=== PATIENT | male | born 1945 | race Caucasian/White ===

== ENCOUNTER → 2023-03-07 | Outpatient (CLI) | payer MEDICARE, BC ==
[2023-03-07 21:38] LABS: Blood Urea Nitrogen 18.9 mg/dL (9.0-27.0); Calcium 9.6 mg/dL (8.7-10.3); Carbon Dioxide 25.5 mmol/L (21.6-31.8); Chloride 103 mmol/L (96-109); Glucose 131 mg/dL (70-110); Potassium 5.1 mmol/L (3.5-5.5); Sodium 140 mmol/L (135-145)
[2023-03-07 22:21] LABS: Basophils # (A) 0.05 X 10*3/uL (0.00-0.10); Basophils % (A) 0.7 %; Eosinophils # (A) 0.25 X 10*3/uL (0.04-0.35); Eosinophils % (A) 3.4 %; HCT 44.2 % (39.6-50.0); HGB 14.7 d/dL (13.0-17.0); Lymphocytes # (A) 1.44 X 10*3/uL (0.90-5.00); Lymphocytes % (A) 19.5 %; MCH 29.7 pg (27.0-32.0); MCHC 33.3 d/dL (32.0-37.0); MCV 89.3 FL (80.0-97.0); Mean Platelet Volume 9.7 FL (9.5-12.2); Monocytes # (A) 0.58 X 10*3/uL (0.20-1.00); Monocytes % (A) 7.8 %; NRBC Per 100 WBC 0 X 10*3/uL (0.00-0.01); Neutrophils # (A) 5.06 X 10*3/uL (1.80-7.70); Neutrophils % (A) 68.3 %; Platelet Count 267 X 10*3/uL (140-440); RBC 4.95 X 10*6/uL (4.40-5.60); RDW 12.5 % (11.5-14.5)
== END | disposition home or self-care (01) ==
LOC: LABPAT 13:16
PROVIDERS: ATTEND Urology
DX: Z01.812 Encounter for preprocedural laboratory examination (principal); N40.1 Benign prostatic hyperplasia with lower urinary tract symptoms; N13.8 Other obstructive and reflux uropathy
CPT/HCPCS: 80048; 85025

== ENCOUNTER 2023-03-13 08:20 | Day surgery (SDC) | payer MEDICARE, BC ==
--- NOTE | 2023-03-12 18:35 | P.GSHP ---
History of Present Illness H&P Date: 03/12/23 Chief Complaint: Weak urinary stream The patient is a 77-year-old white male with a long history of obstructive voiding symptoms. He is taken tamsulosin over 20 years. Cystoscopy shows evidence of bilobar BPH. Bladder emptying is complete. He was offered alternative treatment options and elects to undergo Urolift implants. His urologic history is significant also for a history of bladder cancer and kidney stones. - Cardiovascular Cardiovascular: Reports high blood pressure - Genitourinary (Male) Genitourinary: Reports incontinence, Reports nocturia Past Medical History Past Medical History: Cancer, GERD/Reflux, Hypertension, Osteoarthritis (OA), Prostate Disorder, Sleep Apnea/CPAP/BIPAP, Thyroid Disorder Additional Past Medical History / Comment(s): heart murmur, seasonal allergies, bladder cancer, kidney stones. wears cpap. cataracts removed History of Any Multi-Drug Resistant Organisms: None Reported Past Surgical History: Back Surgery, Cholecystectomy, Joint Replacement Additional Past Surgical History / Comment(s): total rt knee, cystscopy, colonoscopy, neck surgery - disc removed. carpal tunnel surgery. Past Anesthesia/Blood Transfusion Reactions: No Reported Reaction Additional Past Anesthesia/Blood Transfusion Reaction / Comment(s): no blood transfusions Smoking Status: Former smoker - Past Family History Son(s) Family Medical History: Cancer Father Family Medical History: Cancer Mother Family Medical History: Cancer Brother(s) Family Medical History: Cancer Sister(s) Additional Family Medical History / Comment(s): enlarged heart Medications and Allergies Home Medications Medication Instructions Recorded Confirmed Type Aspirin 81 mg PO DAILY 03/06/23 03/06/23 History Cholecalciferol [Vitamin D3 (25 25 mcg PO DAILY 03/06/23 03/06/23 History Mcg = 1000 Iu)] Glucosamine Sulfate 1,500 mg PO DAILY 03/06/23 03/06/23 History Levothyroxine Sodium 100 mcg PO DAILY 03/06/23 03/06/23 History Lutein 20 mg PO DAILY 03/06/23 03/06/23 History Pantoprazole Sodium 40 mg PO DAILY 03/06/23 03/06/23 History Potassium Citrate [Potassium 20 meq PO AC-TID 03/06/23 03/06/23 History Citrate ER] Tamsulosin HCl [Flomax] 0.4 mg PO BID 03/06/23 03/06/23 History Unk Multi Vitamin 1 tab PO DAILY 03/06/23 03/06/23 History Vitamin E (Dl,Tocopheryl Acet) 400 unit PO DAILY 03/06/23 03/06/23 History [Vitamin E (400 Iu = 180 mg)] amLODIPine [Norvasc] 5 mg PO DAILY 03/06/23 03/06/23 History lisinopriL [Zestril] 20 mg PO HS 03/06/23 03/06/23 History Allergies Allergy/AdvReac Type Severity Reaction Status Date / Time No Known Allergies Allergy Verified 03/06/23 14:07 Surgical - Exam - General well developed, well nourished, no distress - Respiratory normal respiratory effort - Abdomen Abdomen: soft, non tender, no guarding, no rigid, no rebound - Genitourinary normal penis with no external lesions, testicles non-tender - Rectum Rectum: normal sphincter tone, no masses, other (Prostate mildly enlarged but smooth) - Psychiatric oriented to time, oriented to person, oriented to place, speech is normal, memory intact Assessment and Plan (1) Benign prostatic hyperplasia with lower urinary tract symptoms Status: Acute Code(s): N40.1 - BENIGN PROSTATIC HYPERPLASIA WITH LOWER URINARY TRACT SYMP SNOMED Code(s): 745341472 Plan: Cystoscopy with Urolift implants. The procedure has been reviewed in detail w ith the patient. He has been made aware of potential risks, which include anesthesia, bleeding, infection, postoperative irritative voiding symptoms, and persistent lower urinary tract symptoms with incomplete bladder emptying.
[~2023-03-13 08:20] MED LIST: DEXAMETHASONE SOD PHOSPHATE 4 MG/ML 1 ML VIAL IV ONE; HYDROmorphone 0.5 MG/0.5 ML SYRINGE IVP PRN; LACTATED RINGERS 1,000 ML IV SCH; LIDOCAINE 1% (10MG/ML) FOR IV START INTRADERMA PRN; ONDANSETRON 4 MG/2 ML VIAL IVP ONE
[2023-03-13 09:18] VITALS: BP 145/70; PULSE 51; RESP 20; TEMP 97.8
== END 2023-03-13 11:27 | disposition home or self-care (01) ==
LOC: OR 08:20
PROVIDERS: ATTEND Urology
DX: N40.1 Benign prostatic hyperplasia with lower urinary tract symptoms (principal); I10 Essential (primary) hypertension; E78.5 Hyperlipidemia, unspecified; G47.33 Obstructive sleep apnea (adult) (pediatric); K21.9 Gastro-esophageal reflux disease without esophagitis; M19.90 Unspecified osteoarthritis, unspecified site; E07.9 Disorder of thyroid, unspecified; Z79.82 Long term (current) use of aspirin; Z79.890 Hormone replacement therapy; Z87.442 Personal history of urinary calculi; Z87.891 Personal history of nicotine dependence; Z90.49 Acquired absence of other specified parts of digestive tract; Z79.899 Other long term (current) drug therapy; Z85.51 Personal history of malignant neoplasm of bladder; Z53.8 Procedure and treatment not carried out for other reasons
CPT/HCPCS: 84132; J1100; J2405

== ENCOUNTER 2023-05-08 06:04 | Day surgery (SDC) | payer MEDICARE, BC ==
--- NOTE | 2023-05-07 19:53 | P.GSHP ---
History of Present Illness H&P Date: 05/07/23 Chief Complaint: Weak urinary stream The patient is a 77-year-old white male with a history kidney stones. He was diagnosed with bladder cancer approximately 20 years ago, and had one recurrence treated 15 years ago. He has taken tamsulosin for over 20 years, and states yuki t it initially helped. However, he now reports a weak urinary stream, intermittency, nocturia, and urgency with rare urinary urge incontinence. Bladder emptying is complete. Cystoscopy showed bilobar BPH. - Cardiovascular Cardiovascular: Reports high blood pressure - Genitourinary (Male) Genitourinary: Denies dysuria, Denies hematuria Past Medical History Past Medical History: Cancer, GERD/Reflux, Hypertension, Osteoarthritis (OA), Prostate Disorder, Sleep Apnea/CPAP/BIPAP, Thyroid Disorder Additional Past Medical History / Comment(s): heart murmur, seasonal allergies, bladder cancer, kidney stones. wears cpap. cataracts removed History of Any Multi-Drug Resistant Organisms: None Reported Past Surgical History: Back Surgery, Cholecystectomy, Joint Replacement Additional Past Surgical History / Comment(s): total rt knee, cystscopy, colonoscopy, neck surgery - disc removed. carpal tunnel surgery. Past Anesthesia/Blood Transfusion Reactions: No Reported Reaction Additional Past Anesthesia/Blood Transfusion Reaction / Comment(s): no blood transfusions Smoking Status: Former smoker - Past Family History Son(s) Family Medical History: Cancer Father Family Medical History: Cancer Mother Family Medical History: Cancer Brother(s) Family Medical History: Cancer Sister(s) Additional Family Medical History / Comment(s): enlarged heart Medications and Allergies Home Medications Medication Instructions Recorded Confirmed Type Aspirin 81 mg PO DAILY 03/06/23 05/02/23 History Cholecalciferol [Vitamin D3 (25 25 mcg PO DAILY 03/06/23 05/02/23 History Mcg = 1000 Iu)] Glucosamine Sulfate 1,500 mg PO DAILY 03/06/23 05/02/23 History Levothyroxine Sodium 100 mcg PO DAILY 03/06/23 05/02/23 History Lutein 20 mg PO DAILY 03/06/23 05/02/23 History Pantoprazole Sodium 40 mg PO DAILY 03/06/23 05/02/23 History Potassium Citrate [Potassium 20 meq PO AC-TID 03/06/23 05/02/23 History Citrate ER] Tamsulosin HCl [Flomax] 0.4 mg PO BID 03/06/23 05/02/23 History Unk Multi Vitamin 1 tab PO DAILY 03/06/23 05/02/23 History Vitamin E (Dl,Tocopheryl Acet) 400 unit PO DAILY 03/06/23 05/02/23 History [Vitamin E (400 Iu = 180 mg)] amLODIPine [Norvasc] 5 mg PO DAILY 03/06/23 05/02/23 History lisinopriL [Zestril] 20 mg PO HS 03/06/23 05/02/23 History Allergies Allergy/AdvReac Type Severity Reaction Status Date / Time No Known Allergies Allergy Verified 05/02/23 09:40 Surgical - Exam - General well developed, well nourished, no distress - Respiratory normal respiratory effort - Abdomen Abdomen: soft, non tender, no guarding, no rigid, no rebound - Genitourinary normal penis with no external lesions, testicles non-tender - Rectum Rectum: normal sphincter tone, no masses, other (Prostate mildly enlarged and smooth) - Psychiatric oriented to time, oriented to person, oriented to place, speech is normal, memory intact Assessment and Plan (1) Benign prostatic hyperplasia with lower urinary tract symptoms Status: Acute Code(s): N40.1 - BENIGN PROSTATIC HYPERPLASIA WITH LOWER URINARY TRACT SYMP SNOMED Code(s): 527511955 Plan: Cystoscopy with Urolift implants. The procedure has been reviewed in detail with the patient. He has been made aware of potential risks, which include anesthesia, bleeding, infection, postoperative irritative voiding symptoms, and persistent lower urinary tract symptoms with incomplete bladder emptying.
[2023-05-08 06:52] VITALS: RESP 16
[2023-05-08] MEDS ORDERED: ONDANSETRON 4 MG/2 ML VIAL IVP ONE (06:52)
[2023-05-08] MEDS ORDERED: LACTATED RINGERS 1,000 ML IV SCH (06:52)
[2023-05-08] MEDS ORDERED: HYDROmorphone 0.5 MG/0.5 ML SYRINGE IVP PRN (07:00)
[2023-05-08] MEDS ORDERED: MIDAZOLAM 2 MG/2 ML VIAL IVP ONE (07:07)
[2023-05-08] MEDS ORDERED: PROPOFOL 10 MG/ML 20 ML VIAL IV ONE (07:30)
[2023-05-08] MEDS ORDERED: fentaNYL (PF) 50 MCG/ML 2 ML AMP ONE (07:30)
[2023-05-08] MEDS ORDERED: LIDOCAINE 4% LTA KIT (4 ML) TOPICAL ONE (07:30)
[2023-05-08] MEDS ORDERED: LIDOCAINE 1% INJ 10MG/ML (20 ML MDV) ONE (07:30)
[2023-05-08] MEDS ORDERED: ePHEDrine 50 MG/ML 1 ML VIAL ONE (07:30)
[2023-05-08] MEDS ORDERED: SUCCINYLCHOLINE CHLORIDE 200 MG/10 ML VIAL IV ONE (07:30)
[2023-05-08 08:51] VITALS: TEMP 97
[2023-05-08 09:38] VITALS: BP 144/79; PULSE 60
--- NOTE | 2023-05-08 10:53 | P.OP ---
Date of Procedure: 05/08/23 Preoperative Diagnosis: BPH with obstruction Postoperative Diagnosis: Same Procedure(s) Performed: Cystoscopy with Urolift implants, fulguration of bleeders Anesthesia: DEBBI Surgeon: Ventura Bryant Estimated Blood Loss (ml): 10 IV fluids (ml): 700 Pathology: none sent Condition: stable Disposition: PACU Indications for Procedure: The patient is a 77-year-old white male with a history kidney stones. He was diagnosed with bladder cancer approximately 20 years ago, and had one recurrence treated 15 years ago. He has taken tamsulosin for over 20 years, and states that it initially helped. However, he now reports a weak urinary stream, intermittency, nocturia, and urgency with rare urinary urge incontinence. Bladder emptying is complete. Cystoscopy showed bilobar BPH and he has elected to undergo Urolift implants. Operative Findings: Bilobar BPH, R>L. 6 implants result in an open prostatic fossa. Description of Procedure: The patient was taken in the operating room and placed in the dorsolithotomy position. The external genitalia was prepped and draped sterilely. The 30 lens was used to introduce the Stortz cystoscopic sheath through the urethra and into the bladder under direct vision. The anterior urethra appeared normal. The prostatic urethra showed evidence of complete obstruction with a bilobar configuration, with the majority of the obstruction being right-sided. Both ureteral orifice his were of normal anatomic location and configuration. No tumors or foreign bodies were seen. The bladder was mildly trabeculated. Urolift implants were placed at the 10:00 and 2:00 positions approximately 1.5 cm distal to the vesical neck. 2 additional Urolift implants were placed at the 9:00 and 3:00 positions at the level of the verumontanum. 2 additional implants were placed on the right side to achieve an open prostatic fossa. The Bugbee electrode was used to fulgurate bleeders. Hemostasis was adequate. The cystoscope removed. A Rivera catheter was placed. The return was pink tinged. The patient tolerated the procedure well was taken to the recovery room in stable condition.
== END 2023-05-08 09:54 | disposition home or self-care (01) ==
LOC: OR 06:04
PROVIDERS: ATTEND Urology
DX: N40.1 Benign prostatic hyperplasia with lower urinary tract symptoms (principal); N13.8 Other obstructive and reflux uropathy; N39.41 Urge incontinence; K21.9 Gastro-esophageal reflux disease without esophagitis; I10 Essential (primary) hypertension; M19.90 Unspecified osteoarthritis, unspecified site; G47.33 Obstructive sleep apnea (adult) (pediatric); J30.2 Other seasonal allergic rhinitis; E03.9 Hypothyroidism, unspecified; Z90.49 Acquired absence of other specified parts of digestive tract; Z98.890 Other specified postprocedural states; Z87.442 Personal history of urinary calculi; Z85.51 Personal history of malignant neoplasm of bladder; Z87.891 Personal history of nicotine dependence; Z79.82 Long term (current) use of aspirin; Z79.890 Hormone replacement therapy; Z79.899 Other long term (current) drug therapy
CPT/HCPCS: C9740; L8699; J2250; J0330; J0690; J2405; J2001; J3010; J2704

== ENCOUNTER → 2024-09-30 | Outpatient (CLI) | payer MEDICARE, BC ==
[2024-09-30 12:35] LABS: Partial Thromboplastin Time 22.8 sec (22.0-30.0)
[2024-09-30 15:01] LABS: HCT 44.5 % (39.6-50.0); HGB 14.6 g/dL (13.0-17.0); MCH 28.9 pg (27.0-32.0); MCHC 32.8 g/dL (32.0-37.0); MCV 88.1 FL (80.0-97.0); Mean Platelet Volume 9.9 FL (9.5-12.2); NRBC Per 100 WBC 0 X 10*3/uL (0.00-0.01); Platelet Count 241 X 10*3/uL (140-440); RBC 5.05 X 10*6/uL (4.40-5.60); RDW 12.4 % (11.5-14.5); WBC 5.24 X 10*3/uL (4.50-10.00)
[2024-09-30 15:21] LABS: ALT 26 U/L (10-49); AST 24 U/L (14-35); Albumin 4.2 g/dL (3.8-4.9); Albumin/Globulin Ratio 1.83 Ratio (1.60-3.17); Alkaline Phosphatase 90 U/L (41-126); BUN/Creat Ratio 22.56 Ratio (12.00-20.00); Blood Urea Nitrogen 20.3 mg/dL (9.0-27.0); Calcium 9.7 mg/dL (8.7-10.3); Chloride 106 mmol/L (96-109); Globulin 2.3 g/dL (1.6-3.3); Glucose 133 mg/dL (70-110); Potassium 4.5 mmol/L (3.5-5.5); Sodium 140 mmol/L (135-145); Total Bilirubin 0.5 mg/dL (0.3-1.2); Total Protein 6.5 g/dL (6.2-8.2)
[2024-09-30 19:09] LABS: INR 0.9 (<1.2); Prothrombin Time 10.5 sec (10.0-12.5)
== END | disposition home or self-care (01) ==
LOC: LABPAT 10:21
PROVIDERS: ATTEND Orthopaedic Surgery
DX: Z01.812 Encounter for preprocedural laboratory examination (principal); Z22.322 Carrier or suspected carrier of Methicillin resistant Staphylococcus aureus; M17.12 Unilateral primary osteoarthritis, left knee
CPT/HCPCS: 80053; 85027; 85610; 85730; 87070

== ENCOUNTER 2024-10-11 07:07 | Day surgery (SDC) | payer MEDICARE, BC ==
[~2024-10-11 07:07] MED LIST changes: -DEXAMETHASONE SOD PHOSPHATE 4 MG/ML 1 ML VIAL IV ONE; -HYDROmorphone 0.5 MG/0.5 ML SYRINGE IVP PRN; -LACTATED RINGERS 1,000 ML IV SCH; -LIDOCAINE 1% (10MG/ML) FOR IV START INTRADERMA PRN; -ONDANSETRON 4 MG/2 ML VIAL IVP ONE; +TRANEXAMIC 1,000 MG/100ML-NACL 1,000 MG in SALINE 1 100ML.BAG IVPB PRN
[2024-10-11] MEDS: IV FLUID CONTINUATION 1,000 ML IV ONE (07:37)
[2024-10-11] MEDS ORDERED: HYDROmorphone 0.5 MG/0.5 ML SYRINGE IVP PRN ×4 (07:40→08:31)
[2024-10-11] MEDS ORDERED: MIDAZOLAM 2 MG/2 ML VIAL IV PRN (07:40)
[2024-10-11] MEDS: DEXAMETHASONE SOD PHOSPHATE 4 MG/ML 1 ML VIAL IV ONE (07:50)
[2024-10-11] MEDS: MELOXICAM 7.5 MG TAB PO PRN (07:50)
[2024-10-11] MEDS: LACTATED RINGERS 1,000 ML IV SCH (07:50)
[2024-10-11] MEDS: ACETAMINOPHEN TAB 500 MG TAB PO PRN (07:50)
[2024-10-11] MEDS: GABAPENTIN 300 MG CAP PO PRN (07:50)
[2024-10-11] MEDS: ONDANSETRON 4 MG/2 ML VIAL IVP ONE (07:50)
[2024-10-11] MEDS: fentaNYL (PF) 50 MCG/ML 2 ML AMP IVP STA (08:28)
[2024-10-11] MEDS: MIDAZOLAM 2 MG/2 ML VIAL IV STA (08:28)
[2024-10-11] MEDS ORDERED: NA PHOS,M-B/NA PHOS,DI-BA 133 ML ENEMA RECTAL PRN (08:31)
[2024-10-11] MEDS ORDERED: bisacodyL 10 MG SUPP RECTAL PRN (08:31)
[2024-10-11] MEDS ORDERED: ONDANSETRON 4 MG/2 ML VIAL IVP PRN (08:31)
[2024-10-11] MEDS ORDERED: NALOXONE 0.4 MG/ML 1 ML VIAL IV PRN (08:31)
[2024-10-11] MEDS ORDERED: MAGNESIUM HYDROXIDE 2,400 MG/30 ML CUP PO PRN (08:31)
[2024-10-11] MEDS ORDERED: HYDROcodone/APAP 7.5-325MG 1 EACH TAB PO PRN (08:33)
[2024-10-11] MEDS ORDERED: DEXAMETHASONE SOD PHOSPHATE 4 MG/ML 1 ML VIAL ONE (08:52)
[2024-10-11] MEDS ORDERED: ROPIVACAINE 5 MG/ML 30 ML VIAL ONE (08:52)
[2024-10-11] MEDS ORDERED: TRANEXAMIC 1,000 MG/100ML-NACL PREMIX BAG ONE (08:52)
[2024-10-11] MEDS ORDERED: PROPOFOL 10 MG/ML 20 ML VIAL IV ONE (08:52)
[2024-10-11] MEDS ORDERED: SODIUM CHLORIDE 0.9% (PF) 10 ML VIAL ONE (08:52)
[2024-10-11] MEDS: ceFAZolin 1,000 MG in SODIUM CHLORIDE 0.9% 1,000 ML IRRIGATION ONE (08:55)
[2024-10-11] MEDS: ceFAZolin 2 GM in DEXTROSE 5% IN WATER 50 ML IVPB PRN (08:55)
--- NOTE | 2024-10-11 09:13 | P.ANPRN ---
Procedure Note - Anesthesia - Nerve Block Performed Left iPack Single Time Out Performed: Yes ([id number]) Date of Procedure: 10/11/24 Procedure Start Time: 08:34 Procedure Stop Time: 08:37 Location of Patient: PreOp Indication: Acute Post-Operative Pain, Requested by Surgeon Specifically requested for management of pain by DrAlberto: Jak Baptiste Sedation Type: Sedate with meaningful contact maintained Preparation: Sterile Prep Position: Supine Catheter: None Needle Types: Pajunk Needle Gauge: 21 Ultrasound used to visualize needle placement: Yes Ultrasound used to observe medication spread: Yes Injectate: 0.5% Ropivacaine (see comment for volume) (15cc+10cc nacl pf +decadron 4mg) Blood Aspirated: No Pain Paresthesia on Injection Noted: No Resistance on Injection: Normal Image Stored and Saved: Yes Events: Uneventful and Well Tolerated
--- NOTE | 2024-10-11 09:13 | P.ANPRN ---
Procedure Note - Anesthesia - Nerve Block Performed Left Adductor Canal Infusion Time Out Performed: Yes ([id number]) Date of Procedure: 10/11/24 Procedure Start Time: : Procedure Stop Time: :33 Location of Patient: PreOp Indication: Acute Post-Operative Pain, Requested by Surgeon Specifically requested for management of pain by DrAlberto: Jak Baptiste Sedation Type: Sedate with meaningful contact maintained Preparation: Sterile Prep, Sterile Dressing Position: Supine Catheter Depth at Skin (cm): 7 Catheter: Indwelling Needle Types: Pajunk Needle Gauge: 18 Ultrasound used to visualize needle placement: Yes Ultrasound used to observe medication spread: Yes Injectate: 0.5% Ropivacaine (see comment for volume) (15cc+10cc nacl pf+4mg decadron) Blood Aspirated: No Pain Paresthesia on Injection Noted: No Resistance on Injection: Normal Image Stored and Saved: Yes Events: Uneventful and Well Tolerated
--- NOTE | 2024-10-11 10:07 | P.OP ---
Date of Procedure: 10/11/24 Preoperative Diagnosis: Severe osteoarthritis left knee Postoperative Diagnosis: Severe osteoarthritis left knee Procedure(s) Performed: Left total knee arthroplasty Implants: [employer]hew Journey II CR Oxinium cruciate retaining femoral component size 5, left [employer] Journey nonporous tibial baseplate size 4, left [employer] Journey II, XLPE Deep Dished articular insert, size 9 mm, Size 3- 4, left [employer] Journey Berenice II resurfacing patellar component, oval, 32 mm All components were cemented using Palacos R bone cement The articulation is Oxinium on polyethylene Anesthesia: spinal Surgeon: Jak Baptiste Tag Press Operator #1: Era Montes Estimated Blood Loss (ml): 25 Pathology: none sent Condition: stable Disposition: PACU Indications for Procedure: The patient's knee is end-stage, and conservative management has failed. The operation of knee replacement has been discussed at length in the office, as well as potential risks and complications. These are inclusive of, but not limited to: Infection, bleeding, scarring, discomfort, stiffness, blood vessel and nerve damage, need for further surgery, failure to relieve symptoms, persistence, recurrence, or worsening of problems, loosening, dislocation, wear, blood clot, pulmonary embolism, , gait dysfunction, stiffness, and other risks as discussed in the office. Patient elects to proceed and the consent form has been signed. Operative Findings: The operative findings are consistent with severe arthritis arthritis of the left knee Description of Procedure: The patient was seen in the preoperative area, the consent was reviewed and the operative site was marked with a skin marker. The patient verified the procedure and the operative site. An adductor canal pain catheter and an iPACK block were placed by anesthesia in the preoperative area. The patient was then brought to the operating room and positioned on the operating room table in the supine position. Preoperative antibiotics and a gram of tranexamic acid were given intravenously. A spinal anesthetic was administered by the anesthesia department. Care was taken to make sure that all pressure points were adequately padded. A tourniquet was placed on the upper thigh and the lower extremity was prepped with ChloraPrep and draped in usual sterile fashion. A universal time-out was then performed which confirmed the patient's name, surgical site, ALLERGIES, and consent. The lower extremity was then exsanguinated and tourniquet was inflated to 250 mmHg. A standard anterior midline approach to the knee was performed. The skin and subcutaneous tissue were sharply dissected down to the patellar tendon. A medial parapatellar arthrotomy was then performed. The knee was then extended, the patellar was everted, and the knee was flexed. The infra-patellar fat pad was removed in order to enhance exposure. The anterior horns of both menisci were excised, and a release was performed to the posterior medial aspect of the knee. On gross visual inspection, there was complete loss of articular cartilage in the medial and patellofemoral joint spaces. There was also significant cartilage damage in the lateral compartment. There were multiple periarticular osteophytes globally about the knee which were then removed with a Ronguer. The femoral canal was then opened with the 9.5 mm intramedullary drill. The 8 mm intramedullary nohemi was then inserted into the femoral canal with the distal femoral cutting guide set for 5 of valgus. The distal femoral cutting block was then pinned in place. The intramedullary nohemi was then removed, and the distal femur was then cut. The cutting block was then removed and the cut was checked for symmetry. The resected bone was then measured to confirm the appropriate distal femoral resection. Next, the sizing guide was then placed and set for 3 external rotation based off of the epicondylar axis and [place]'s line. Pins were then placed and the drill holes, and the femur was sized with the sizing stylus. The pins were then removed, and the sizing guide was then removed. The spikes of the appropriate size femoral block was t hen placed into the predrilled holes, and malleted into place. Two 45 mm pins were then placed into the fixation holes on the cutting block. An nany wing was then used to ensure there would be no notching with the anterior cut. The anterior condyles were cut without notching. The anterior chord cut was then performed, followed by the posterior cut, posterior chamfer cut, and the anterior chamfer cut. The collateral ligaments were protected during the entire process. The cutting block was then removed. Any remaining bone and osteophytes were removed from the femur with a Ronguer. Attention was then directed to the tibia. The remaining ACL was removed with a Ronguer, and the tibia was then gently subluxed forward with a large bent knee retractor. Any remaining menisci were excised. The posterior lateral corner was cauterized in order to coagulate the lateral geniculate artery. The extra medullary tibial cutting guide was then placed, set for the appropriate rotation, slope, and depth of resection. The proximal tibia cutting guide was then pinned in place. Proximal tibia was then cut and sized. A curved osteotome was then used to remove any posterior osteophytes from the distal femur. The femoral trial was placed. A narrow saw blade was then used to remove the anterior intracondylar femoral bone. The CR notch trial was then placed. The tibial trial was placed with the appropriate-sized insert. The knee was able to fully extend and flex to 130 and was stable throughout all range of motion. The knee was then extended and the patella was everted. Patella was then measured, and then using an osteotomy guide, the patella was cut at the appropriate level. The patellar component was sized. The patellar drill guide was placed and the patella was drilled. The patella trial was then placed. The knee was then taken through range of motion with the patella trial and the patella tracked normally using the no thumbs technique. The patella trial was then removed. The knee was then flexed and lug holes were drilled through the femoral trial and the femoral trial was then removed. The tibial was then re- exposed, and the tibial broach guide was then pinned in place after it was set for the appropriate rotation to allow for the most coverage without overhang. The tibia was then reamed and broached. The femoral canal was plugged with autologous bone. The cut surfaces of bone were then irrigated with pulsatile lavage. The knee was also irrigated with Irrisept solution. The components were then opened, the cement was mixed. Cement was placed on the backside of the femoral, tibial, and patellar components. Cement was then applied to the tibial surface and pressurized into the surface using finger pressurization technique. The tibial component was then applied and excess cement was removed after it was impacted securely noted to be flush with the cut surface. In similar fashion, the cement was applied to the cut femoral surface, pre ssurized and using finger pressurization the component was impacted in place. Excess cement was removed. The polyethylene spacer was then implanted and locked into position. Patellar component was then applied in a similar technique and the patellar clamp was used to hold patella in place while the cement hardened. The knee was held in full extension while the cement hardened. Once the cement had fully hardened, the knee was reinspected. Any other cement extrusion was removed the final range of motion testing showed range of motion from 0-130 with excellent stability, both medial and laterally and appropriate alignment of the leg. Patella tracked normally. After the cemented hardened, the tourniquet was released and hemostasis was obtained. A second gram of transexamic acid was given intravenously. The knee was again irrigated. The knee was again taken through range of motion and found to be stable throughout all range of motion of 0-130, and the patella tracked normally. The fascia was then closed with 0 Vicryl followed by #2 strata fix suture. The subcutaneous tissue was closed with 3-0 Vicryl and 3-0 monocryl. Exofin glue was used for the skin and placed with the knee in flexion. After the glue had dried, and Optafoam silver impregnated dressing was applied. A lightly compressive dressing was applied using web roll and James wrap. Patient was then transferred to the stretcher and taken to recovery room in stable condition. Sponge and needle counts were correct. The ward assistant HARJEET Lea was required due the complexity surgery and the need for a skilled surgical scheduler. She assisted in positioning, draping, retraction, and closure of the wound.
[2024-10-11] MEDS: ROPIVACAINE 1,100 MG, SODIUM CHLORIDE 0.9% 500 ML 330 ML, EMPTY PAIN BALL 1 EACH MISCELLANE PRN (10:51)
--- NOTE | 2024-10-11 10:51 | XR ---
EXAMINATION TYPE: XR knee limited LT DATE OF EXAM: 10/11/2024 10:47 AM INDICATION: Patient age:Male; 79 years old; Reason for study: Evaluation for Postop abnormality and alignment; PHH. pain COMPARISON: None. TECHNIQUE: The Left knee(s) was examined in frontal and lateral projections. FINDINGS: Status post total knee arthroplasty changes with hardware in appropriate alignment and in tact. No evidence of fracture. Subcutaneous lucencies and lucencies within the joint consistent with surgical changes. IMPRESSION: Status post total knee arthroplasty changes with hardware intact and appropriate alignment. No fractu res identified. [facility], , 10/11/2024 10:49 AM
[2024-10-11] MEDS: SODIUM CHLORIDE 0.9% 1,000 ML IV SCH (12:42)
--- NOTE | 2024-10-11 13:06 | P.CONS ---
History of Present Illness - Reason for Consult Consult date: 10/11/24 - History of Present Illness Patient is a 79-year-old male with past medical history nephrolithiasis, bladder cancer 20 years ago, HTN, GERD, BARBARA, hypothyroidism. Of left knee osteoarthritis who presented for elective left total knee arthroplasty that was performed on 10/11/2024, patient tolerated procedure well, EBL 25 cc, no immediate postoperative complications reported in the OP note. Sound physicians consulted for medical management. Patient's vitals preoperatively: Afebrile, heart rate in 50s, BP 130s over 70s, satting well on room air. Reviewed blood work from 09/30 that showed normal WBC and hemoglobin, platelet count, sodium, potassium, creatinine, liver function. Patient was seen after surgery, feels comfortable, was finishing his lunch, no active complaints at this time Pertinent positives and negatives as discussed in HPI, a complete review of systems was performed and all other systems are negative. Patient seen and examined at bedside. [] Vital signs reviewed General: nontoxic, no distress, appears at stated age Derm: warm, dry Head: atraumatic, normocephalic, symmetric Eyes: EOMI, no lid lag, anicteric sclera, pupils equal round reactive to light ENT: Nose and ears atraumatic Neck: No thyromegaly, supple Mouth: no lip lesion, mucus membranes moist Cardiovascular: S1S2 reg, no murmur, no edema Lungs: clear to auscultation bilateral, no rhonchi, no rales, no wheeze, no accessory muscle use Abdominal: soft, nontender to palpation, no guarding, no appreciable organomegaly Ext: no gross muscle atrophy, muscle strength muscle strength 5 out of 5 in all 4 extremities, no contractures, left knee postop dressing clean dry, surrounding edema Neuro: CN II-XII grossly intact Psych: Alert, oriented, appropriate affect Assessment/Plan: Hypertension: Continue home amlodipine 5 mg and lisinopril 20 mg daily Hyperlipidemia: Continue home pravastatin 20 mg nightly Hypothyroidism: Continue home levothyroxine 100 mcg daily Left knee osteoarthritis status post TKA 10/11/2024 - Your postop management, pain management, VTE prophylaxis CODE STATUS: Full code DVT prophylaxis: Per Ortho on aspirin 325 twice daily Past Medical History Past Medical History: Cancer, GERD/Reflux, Hyperlipidemia, Hypertension, Osteoarthritis (OA), Prostate Disorder, Sleep Apnea/CPAP/BIPAP, Thyroid Disorder Additional Past Medical History / Comment(s): heart murmur, seasonal allergies, bladder cancer, kidney stones. wears cpap. cataracts removed History of Any Multi-Drug Resistant Organisms: None Reported Past Surgical History: Back Surgery, Cholecystectomy, Joint Replacement Additional Past Surgical History / Comment(s): total rt knee x2, cystscopy, colonoscopy, neck surgery - disc removed. carpal tunnel surgery. urolift, menisus repair lft knee Past Anesthesia/Blood Transfusion Reactions: No Reported Reaction Additional Past Anesthesia/Blood Transfusion Reaction / Comm: no blood transfusions Past Psychological History: No Psychological Hx Reported Smoking Status: Former smoker Past Alcohol Use History: Rare Additional Past Alcohol Use History / Comment(s): smoked 13 yrs quit at 34yrs Past Drug Use History: None Reported - Past Family History Son(s) Family Medical History: Cancer Father Family Medical History: Cancer Mother Family Medical History: Cancer Brother(s) Family Medical History: Cancer Sister(s) Additional Family Medical History / Comment(s): enlarged heart Medications and Allergies Home Medications Medication Instructions Recorded Confirmed Type Aspirin 81 mg PO DAILY 03/06/23 10/11/24 History Levothyroxine Sodium 100 mcg PO DAILY 03/06/23 10/11/24 History Unk Multi Vitamin 1 tab PO DAILY 03/06/23 10/11/24 History Vitamin E (Dl,Tocopheryl Acet) 400 unit PO DAILY 03/06/23 10/11/24 History [Vitamin E (400 Iu = 180 mg)] amLODIPine [Norvasc] 5 mg PO DAILY 03/06/23 10/11/24 History lisinopriL [Zestril] 20 mg PO HS 03/06/23 10/11/24 History Co Q 10 1 tab PO DAILY 10/05/24 10/11/24 History Pravastatin Sodium [Pravachol] 20 mg PO HS 10/05/24 10/11/24 History Aspirin 325 mg PO BID #60 tab 10/11/24 Rx HYDROcodone/APAP 7.5-325MG [[place] 1 - 2 tab PO Q6H PRN #32 tab 10/11/24 Rx 7.5-325] Sennosides [Senokot] 2 tab PO DAILY PRN #60 tablet 10/11/24 Rx Allergies Allergy/AdvReac Type Severity Reaction Status Date / Time aluminum Allergy Unknown Verified 10/11/24 07:40 nickel Allergy Unknown Uncoded 10/11/24 07:40 Physical Exam Vitals: Vital Signs Temp Pulse Pulse Resp BP BP Pulse Ox 10/11/24 12:30 97.6 F 18 159/86 92 L 10/11/24 12:03 51 L 16 121/71 95 10/11/24 11:33 51 L 16 134/73 98 10/11/24 11:18 55 L 16 137/71 98 10/11/24 11:03 51 L 16 130/73 98 10/11/24 10:48 50 L 16 126/71 96 10/11/24 10:33 97 F L 49 L 19 119/66 97 10/11/24 08:45 55 L 16 153/69 97 10/11/24 07:27 97.7 F 58 L 16 154/85 94 L Intake and Output 10/10/24 10/11/24 10/11/24 22:59 06:59 14:59 Intake Total 351 Output Total 25 Balance 326 Intake: IV 351 Output: Estimated Blood Loss 25 Other: Weight 86.3 kg
[2024-10-11] MEDS: ceFAZolin 2 GM in DEXTROSE 5% IN WATER 50 ML IVPB SCH (14:55)
[2024-10-11] MEDS: SENNOSIDES-DOCUSATE SODIUM 1 EACH TAB PO SCH (20:26)
[2024-10-11] MEDS: ASPIRIN 325 MG TAB PO SCH (20:26)
[2024-10-11] MEDS: lisinopriL 20 MG TAB PO SCH (20:27)
[2024-10-11] MEDS: HYDROcodone/APAP 7.5-325MG 1 EACH TAB PO PRN (20:41)
[2024-10-11] MEDS ORDERED: PRAVASTATIN SODIUM 20 MG TAB PO SCH (21:00)
[2024-10-12] MEDS: LEVOTHYROXINE 100 MCG TAB PO SCH (06:13)
--- NOTE | 2024-10-12 07:00 | P.PN ---
Progress Note - Text Progress Note Date: 10/12/24 (0700) Anesthesiology Postop day 1 status post total knee arthroplasty with adductor canal catheter. Patient doing well. VAS 3 out of 10. Gross strength intact in lower extremity. Afebrile. Denies alterations in sensorium. Catheter site intact. Heart regular rate Lungs nonlabored Abdomen nondistended Assessment: Postop day 1 status post total knee arthroplasty with adductor canal catheter Plan: 1.All questions answered. Maintain catheter 2 more days with patient removal at home. Instructions to be given at discharge. 2.This note was dictated using [employer] software. Please be advised there is a potential for misspellings or errors in mess attendant crew.
[2024-10-12 07:04] VITALS: BP 124/70; PULSE 59; RESP 16; TEMP 97.3
[2024-10-12] MEDS: PRAVASTATIN SODIUM 20 MG TAB PO SCH (08:17)
[2024-10-12] MEDS: amLODIPine 5 MG TAB PO SCH (08:18)
[2024-10-12 08:41] LABS: Basophils # (A) 0.01 X 10*3/uL (0.00-0.10); Basophils % (A) 0.1 %; Eosinophils # (A) 0 X 10*3/uL (0.04-0.35); Eosinophils % (A) 0 %; HCT 40.3 % (39.6-50.0); HGB 13.2 g/dL (13.0-17.0); Lymphocytes # (A) 0.51 X 10*3/uL (0.90-5.00); Lymphocytes % (A) 3.6 %; MCH 29.5 pg (27.0-32.0); MCHC 32.8 g/dL (32.0-37.0); Monocytes # (A) 0.61 X 10*3/uL (0.20-1.00); Monocytes % (A) 4.3 %; NRBC Per 100 WBC 0 X 10*3/uL (0.00-0.01); Neutrophils # (A) 13.14 X 10*3/uL (1.80-7.70); Neutrophils % (A) 91.4 %; Platelet Count 225 X 10*3/uL (140-440); RBC 4.48 X 10*6/uL (4.40-5.60); RDW 12.5 % (11.5-14.5); WBC 14.35 X 10*3/uL (4.50-10.00)
--- NOTE | 2024-10-12 09:00 | P.DS ---
Providers Expected date of discharge: 10/12/24 Attending physician: Jak Baptiste Consults: 10/11/24 08:31 Consult Physician Routine Consulting Provider: Eduardo Francois Consult Reason/Comments: medical management Do you want consulting provider notified?: Yes Primary care physician: Napoleon Johnson MD - Discharge Diagnosis(es) (1) Osteoarthritis of left knee Current Visit: Yes Status: Acute (2) Status post total left knee replacement Current Visit: Yes Status: Acute Hospital Course: This is an 79-year-old male with known history of degenerative arthritis of the left knee. The patient presented for evaluation as an outpatient. After d iscussion and consideration patient elects to proceed with total knee arthroplasty. The patient is seen preoperatively by Dr. Baptiste and medically cleared for surgery by their primary care physician. Patient is admitted to [facility] on 10/11/2024 for total knee arthroplasty. The procedure is performed without complication or sequelae. The patient is doing well postoperatively. Labs and vital signs are stable on day of discharge. On day of discharge patient's knee incision is healing well. There is minimal erythema. There is no drainage noted at this time. There is minimal soft tissue swelling to the knee. Patient has full foot and ankle motion without difficulty or pain. Calf is soft and nontender to palpation. Neurovascular status to the left lower extremity is intact. Patient is discharged home in good condition. Please see med rec for accurate list of home medications. Plan - Discharge Summary Discharge Rx Participant: No New Discharge Prescriptions: New Aspirin 325 mg PO BID #60 tab HYDROcodone/APAP 7.5-325MG [[place] 7.5-325] 1 - 2 tab PO Q6H PRN #32 tab PRN Reason: Pain Sennosides [Senokot] 2 tab PO DAILY PRN #60 tablet PRN Reason: Constipation No Action Vitamin E (Dl,Tocopheryl Acet) [Vitamin E (400 Iu = 180 mg)] 400 unit PO DAILY lisinopriL [Zestril] 20 mg PO HS Pravastatin Sodium [Pravachol] 20 mg PO HS Co Q 10 1 tab PO DAILY Levothyroxine Sodium 100 mcg PO DAILY amLODIPine [Norvasc] 5 mg PO DAILY Unk Multi Vitamin 1 tab PO DAILY Aspirin 81 mg PO DAILY Discharge Medication List Aspirin 81 mg PO DAILY 03/06/23 [History] Levothyroxine Sodium 100 mcg PO DAILY 03/06/23 [History] Unk Multi Vitamin 1 tab PO DAILY 03/06/23 [History] Vitamin E (Dl,Tocopheryl Acet) [Vitamin E (400 Iu = 180 mg)] 400 unit PO DAILY 03/06/23 [History] amLODIPine [Norvasc] 5 mg PO DAILY 03/06/23 [History] lisinopriL [Zestril] 20 mg PO HS 03/06/23 [History] Co Q 10 1 tab PO DAILY 10/05/24 [History] Pravastatin Sodium [Pravachol] 20 mg PO HS 10/05/24 [History] Aspirin 325 mg PO BID #60 tab 10/11/24 [Rx] HYDROcodone/APAP 7.5-325MG [[place] 7.5-325] 1 - 2 tab PO Q6H PRN #32 tab 10/11/24 [Rx] Sennosides [Senokot] 2 tab PO DAILY PRN #60 tablet 10/11/24 [Rx] Follow up Appointment(s)/Referral(s): Napoleon Johnson MD [Primary Care Provider] - 1 Week [facility] [[facility]] - 1-2 Days ([facility] will call you to schedule your in home physical therapy visits. ) Jak Baptiste DO [Doctor of Osteopathic Medicine] - 2 Weeks Patient Instructions/Handouts: How to Use an Incentive Spirometer (DC), Knee Replacement (DC) Activity/Diet/Wound Care/Special Instructions: Weightbearing as tolerated with a walker. Leave dressing intact. Dressing may be removed by home care nurse or by patient in 7 days. Then change dressing twice daily until follow up. May shower with initial dressing intact and after removal. If dressing become saturated, please remove. Recommend use of compression stockings daily until follow up to help prevent swelling and blood clots. May remove at night before sleeping. Please take aspirin 325mg twice daily for 30 days to prevent blood clots. Please follow up with [facility] and call with any questions or concerns, . Discharge Disposition: HOME WITH HOME HEALTH SERVICES
== END 2024-10-12 11:57 | disposition home health service (06) ==
LOC: OR 07:07 → 4SSUR 11:43 → OR 10-12 11:57
PROVIDERS: ATTEND Orthopaedic Surgery
DX: M17.12 Unilateral primary osteoarthritis, left knee (principal); J45.909 Unspecified asthma, uncomplicated; K21.9 Gastro-esophageal reflux disease without esophagitis; E03.9 Hypothyroidism, unspecified; E78.5 Hyperlipidemia, unspecified; I10 Essential (primary) hypertension; G47.33 Obstructive sleep apnea (adult) (pediatric); N18.9 Chronic kidney disease, unspecified; L23.0 Allergic contact dermatitis due to metals; Z99.89 Dependence on other enabling machines and devices; Z87.442 Personal history of urinary calculi; Z85.51 Personal history of malignant neoplasm of bladder; Z87.891 Personal history of nicotine dependence; Z90.49 Acquired absence of other specified parts of digestive tract; Z79.890 Hormone replacement therapy; Z79.82 Long term (current) use of aspirin; Z79.899 Other long term (current) drug therapy
CPT/HCPCS: 27447; 97161; 64448; 64474; 85025; 73560; C1713; C1776; C1751; J2250; J1100; J0690 ×2; J2405; J3010; J2795; J2704